=== PATIENT | male | born 1985 | race American Indian/Alaskan Native ===

== ENCOUNTER 2017-11-24 14:29 | Emergency (ER) | payer OTHER ==
[2017-11-24] MEDS ORDERED: Ipratropium 0.02% Inhal Soln (0.5 mg/2.5 ml) UD IH STA (14:50)
[2017-11-24 14:57] VITALS: RESP 18
[2017-11-24 15:41] LABS: ALB/GLOB RATIO 1.4 (1.1-1.8); ALBUMIN 4.4 g/dL (3.0-4.8); ALT/SGPT 63 U/L (7-56); AST/SGOT 49 U/L (17-59); BLOOD UREA NITROGEN 13 mg/dL (7-21); CALCIUM 8.9 mg/dL (8.4-10.5); GFR AFRICAN-AMERICAN > 60; GFR NON-AFRICAN AMERICAN > 60
--- NOTE | 2017-11-24 15:46 | RAD ---
HISTORY: cp COMPARISON: No prior. TECHNIQUE: Chest PA and lateral FINDINGS: LUNGS: No active pulmonary disease. PLEURA: No significant pleural effusion identified. No pneumothorax apparent. CARDIOVASCULAR: Normal. OSSEOUS STRUCTURES: Minor multilevel degenerative spondylosis of the thoracic spine theNo significant abnormalities. VISUALIZED UPPER ABDOMEN: Normal. OTHER FINDINGS: None. IMPRESSION: No active disease.
[2017-11-24 15:47] LABS: BASO # 0.03 K/mm3 (0.0-2.0); BASO % 0.4 % (0.0-3.0); EOS # 0.3 (0.0-0.7); EOS % 3.3 % (1.5-5.0); GRAN # 4.75 (1.4-6.5); GRAN % 58.3 % (50.0-68.0); HEMOGLOBIN 14.1 g/dL (14.0-18.0); LYMPH # 2.6 (1.2-3.4); LYMPH % 31.7 % (22.0-35.0); MEAN CELL VOLUME 81.1 fl (80.0-105.0); MEAN CORPUSCULAR HEMOGLOBIN 28.1 pg (25.0-35.0); MEAN CORPUSCULAR HGB CONC 34.6 g/dl (31.0-37.0); MEAN PLATELET VOLUME 9.7 fl (7.0-11.0); MONO # 0.5 (0.1-0.6); MONO % 6.3 % (1.0-6.0); RBC 5.02 10^6/uL (3.5-6.1); RED CELL DISTRIBUTION WIDTH 14.3 % (11.5-14.5); WHITE BLOOD COUNT 8.1 10^3/ul (4.5-11.0)
[2017-11-24 15:52] LABS: TROPONIN I < 0.01 ng/mL
[2017-11-24 15:58] LABS: INR 0.97 (0.93-1.08)
[2017-11-24 15:59] LABS: B-TYPE NATRIURETIC PEPTIDE < 11.1 pg/mL (0-450); CK-MB 4.5 ng/mL (0.0-3.6)
[2017-11-24] MEDS ORDERED: Albuterol-Ipratrop 3 mg / 0.5 (3 ml) UD IH STA (16:32)
[2017-11-24 17:35] LABS: BARBITURATES, UR NEGATIVE (NEGATIVE); BENZODIAZEPINES, UR NEGATIVE (NEGATIVE); OPIATES, UR NEGATIVE (NEGATIVE); PHENCYCLIDINE, UR NEGATIVE (NEGATIVE)
--- NOTE | 2017-11-24 18:01 | ED PDOC ---
Arrival/HPI - General Chief Complaint: Shortness Of Breath Time Seen by Provider: 11/24/17 14:49 Historian: Patient - History of Present Illness Narrative History of Present Illness (Text): 11/24/17 17:50 31 year old male, whose PMH asthma (childhood), who presents to the emergency department complaining of chest pressure associated with shortness of breath orthopneic exacerbated but not associated with nausea, vomiting, diarrhea or diaphoresis. Patient notes recently starting a workup where he jogs 20-30 minutes 5 times a week and chest pain is never exacerbated. Patient denies family history of ACS or connective tissue disease. Patient denies recent URI, recent travel or PE factors. Time/Duration: < week Symptom Onset: Gradual Symptom Course: Unchanged Quality: Pressure Past Medical History - Provider Review Nursing Documentation Reviewed: Yes - Psychiatric Hx Substance Use: No - Surgical History Other/Comment: R FA sx - Anesthesia Hx Anesthesia: Yes Hx Anesthesia Reactions: No Hx Malignant Hyperthermia: No Family/Social History - Physician Review Nursing Documentation Reviewed: Yes Family/Social History: Unknown Family HX Smoking Status: Never Smoked Hx Alcohol Use: No Hx Substance Use: No Allergies/Home Meds Allergies/Adverse Reactions: Allergies No Known Allergies Allergy (Verified 11/24/17 14:36) Review of Systems - Review of Systems Constitutional: absent: Fatigue, Fevers Respiratory: SOB Cardiovascular: Other (chest pressure) Gastrointestinal: absent: Abdominal Pain, Nausea, Vomiting Genitourinary Male: absent: Dysuria Musculoskeletal: absent: Back Pain Skin: absent: Rash Endocrine: absent: Diaphoresis Physical Exam Vital Signs Reviewed: Yes Vital Signs Temp Pulse Resp BP Pulse Ox 11/24/17 17:24 83 18 140/72 98 11/24/17 14:30 98.6 F 89 18 100 Temperature: Afebrile Blood Pressure: Normal Pulse: Regular Respiratory Rate: Normal Appearance: Positive for: Well-Appearing, Non-Toxic, Comfortable Pain Distress: None Mental Status: Positive for: Alert and Oriented X 3 Medical Decision Making ED Course and Treatment: 11/24/17 Impression: Differential Diagnosis included but are not limited to: Plan: -- EKG -- Chest X-ray -- Labs -- Atrovent, Albuterol, Motrin, Pepcid -- Reassess and disposition Progress Notes: 11/24/17 18:00 Chest X-ray: Creator : Richard Rasheed MD FINDINGS: LUNGS: No active pulmonary disease. PLEURA: No significant pleural effusion identified. No pneumothorax apparent. CARDIOVASCULAR: Normal. OSSEOUS STRUCTURES: Minor multilevel degenerative spondylosis of the thoracic spine theNo significant abnormalities. VISUALIZED UPPER ABDOMEN: Normal. OTHER FINDINGS: None. IMPRESSION: No active disease. - Lab Interpretations Lab Results: 11/24/17 14:50 11/24/17 14:50 Lab Results 11/24/17 17:07: Troponin I < 0.01 11/24/17 15:58: Urine Opiates Screen Negative, Urine Methadone Screen Negative, Ur Barbiturates Screen Negative, Ur Phencyclidine Scrn Negative, Ur Amphetamines Screen Negative, U Benzodiazepines Scrn Negative, U Oth Cocaine Metabols Negative, U Cannabinoids Screen Negative 11/24/17 14:50: Sodium 142, Potassium 4.1, Chloride 105, Carbon Dioxide 26, Anion Gap 15, BUN 13, Creatinine 1.1, Est GFR ( Amer) > 60, Est GFR (Non- Af Amer) > 60, Random Glucose 88, Calcium 8.9, Magnesium 1.9, Total Bilirubin 0.4, AST 49, ALT 63 H, Alkaline Phosphatase 47, Lactate Dehydrogenase 615, Total Creatine Kinase 632 H, CK-MB (CK-2) 4.5 H, CK-MB (CK-2) % Cancelled, Troponin I < 0.01, NT-Pro-B Natriuret Pep < 11.1, Total Protein 7.6, Albumin 4.4 , Globulin 3.2, Albumin/Globulin Ratio 1.4 11/24/17 14:50: PT 11.0, INR 0.97 11/24/17 14:50: WBC 8.1, RBC 5.02, Hgb 14.1, Hct 40.7 L, MCV 81.1, MCH 28.1, MCHC 34.6, RDW 14.3, Plt Count 255, MPV 9.7, Gran % 58.3, Lymph % (Auto) 31.7, [place] % (Auto) 6.3 H, Eos % (Auto) 3.3, Baso % (Auto) 0.4, Gran # 4.75, Lymph # ( Auto) 2.6, [place] # (Auto) 0.5, Eos # (Auto) 0.3, Baso # (Auto) 0.03 I have reviewed the lab results: Yes - RAD Interpretation Radiology Orders: 11/24/17 14:49 CHEST TWO VIEWS (PA/LAT) [RAD] Stat Rigging Up Man: Radiologist - EKG Interpretation Interpreted by ED Physician: Yes Type: 12 lead EKG - Medication Orders Current Medication Orders: Discontinued Medications Albuterol/Ipratropium (Duoneb 3 Mg/0.5 Mg (3 Ml) Ud) 3 ml IH STAT STA Stop: 11/24/17 16:33 Last Admin: 11/24/17 16:58 Dose: 3 ml Famotidine (Pepcid) 40 mg PO STAT STA Stop: 11/24/17 14:52 Last Admin: 11/24/17 15:15 Dose: 40 mg Ibuprofen (Motrin Tab) 800 mg PO STAT STA Stop: 11/24/17 14:51 Last Admin: 11/24/17 15:15 Dose: 800 mg Ipratropium Peculiar (Atrovent) 0.5 mg IH STAT STA Stop: 11/24/17 14:51 Last Admin: 11/24/17 15:15 Dose: 0.5 mg - Scribe Statement The provider has reviewed the documentation as recorded by the Sina Mackey Provider Scribe Attestation: All medical record entries made by the Scribe were at my direction and personally dictated by me. I have reviewed the chart and agree that the record accurately reflects my personal performance of the history, physical exam, medical decision making, and the department course for this patient. I have also personally directed, reviewed, and agree with the discharge instructions and disposition. Disposition/Present on Arrival - Present on Arrival History of DVT/PE: No History of Uncontrolled Diabetes: No Urinary Catheter: No History of Decub. Ulcer: No History Surgical Site Infection Following: None - Disposition Diagnosis: Recurrent bronchospasm Disposition: HOME/ ROUTINE Patient Problems: Current Active Problems Problem Status Onset Recurrent bronchospasm Acute Condition: IMPROVED Discharge Instructions (ExitCare): Asthma, Adult (DC), Exercise-Induced Asthma Print Language: KHMER Additional Instructions: Use you inhaler 2 puffs twice a day. Continue exercising . Return for worsening symptoms. Please follow up with your regular pmd as a rpogress check. If symptoms worsen then please return to the ED for further evalution. Your workup here today yields that this may likley be asthma related bronchospasm and should respond to your night ly nebulizer. Prescriptions: Albuterol/Ipratropium [Combivent Respimat] 2 puff IH BID PRN 7 Days #1 inhaler PRN Reason: Shortness Of Breath Prednisone [Deltasone] 40 mg PO DAILY #10 tablet Referrals: PCP,NO [Primary Care Provider] - Follow up with primary Forms: [employer] [place] (Kiswahili)
[2017-11-24 19:18] VITALS: BP 149/82; PULSE 88; TEMP 97.9; O2SAT 100
--- NOTE | 2017-11-25 23:03 | CARD ---
APPROVED REPORT EKG Measurement Heart [id number] <Conclusion> Normal sinus rhythm Normal ECG
== END 2017-11-24 19:18 | disposition home or self-care (01) ==
LOC: ED 14:29
DX: J98.01 Acute bronchospasm (principal)

== ENCOUNTER 2018-02-04 09:02 | Emergency (ER) | payer OTHER ==
[2018-02-04 09:34] VITALS: TEMP 98.6
--- NOTE | 2018-02-04 09:47 | ED PDOC ---
Arrival/HPI - General Chief Complaint: Lower Extremity Problem/Injury Time Seen by Provider: 02/04/18 09:43 Historian: Patient - History of Present Illness Narrative History of Present Illness (Text): 02/04/18 09:44 This 32 yo male who denies pmh presents to this ED c.o b/l chronic posterior heel pain for many years. Patient stated pain has worsen today. Patient admits having flat feet, and his job requires to be on his feet all the time, all day. Patient denies trauma, calf pain, leg swelling, heavy lifiting, or abnormal gait. Time/Duration: Other (see hpi) Context: Home Past Medical History - Provider Review Nursing Documentation Reviewed: Yes - Infectious Disease Hx of Infectious Diseases: None - Psychiatric Hx Substance Use: No - Surgical History Other/Comment: R FA sx - Anesthesia Hx Anesthesia: Yes Hx Anesthesia Reactions: No Hx Malignant Hyperthermia: No Family/Social History - Physician Review Nursing Documentation Reviewed: Yes Family/Social History: Other (noncontributory) Smoking Status: Never Smoked Hx Alcohol Use: No Hx Substance Use: No Allergies/Home Meds Allergies/Adverse Reactions: Allergies No Known Allergies Allergy (Verified 11/24/17 14:36) Review of Systems - Review of Systems Constitutional: Normal. absent: Fatigue, Weight Change, Fevers Eyes: Normal ENT: Normal Respiratory: Normal Cardiovascular: Normal Gastrointestinal: Normal Genitourinary Male: Normal Musculoskeletal: Other (b/l posterior heel pain) Skin: Normal Neurological: Normal Endocrine: Normal Hemo/Lymphatic: Normal Psychiatric: Normal Physical Exam Vital Signs Temp Pulse Resp BP Pulse Ox 02/04/18 09:29 98.6 F 98 H 16 143/87 99 Temperature: Afebrile Blood Pressure: Normal Pulse: Regular Respiratory Rate: Normal Appearance: Positive for: Well-Appearing, Non-Toxic, Comfortable Pain Distress: None Mental Status: Positive for: Alert and Oriented X 3 - Systems Exam Head: Present: Atraumatic, Normocephalic Pupils: Present: PERRL Extroacular Muscles: Present: EOMI Conjunctiva: Present: Normal Mouth: Present: Moist Mucous Membranes Upper Extremity: Present: Normal Inspection, Normal ROM Lower Extremity: Present: Normal Inspection, NORMAL PULSES, Normal ROM, Neurovascularly Intact, Capillary Refill < 2 s, Other ((+) Pes Planus b/l. Garcia test was negative. No posterior ankle tenderness. No calf tenderness. No edema). No: Edema, CALF TENDERNESS, Cyanosis, Vicky's Sign, Tenderness, Swelling, Erythema, Deformity, Temperature Abnormalties Neurological: Present: GCS=15, CN II-XII Intact, Speech Normal, Motor Func Grossly Intact, Normal Sensory Function, Normal Cerebellar Funct, Gait Normal, Memory Normal Skin: Present: Warm, Dry, Normal Color. No: Rashes Psychiatric: Present: Alert, Oriented x 3, Normal Insight, Normal Concentration Medical Decision Making ED Course and Treatment: 02/04/18 10:37 Re-evaluation. Patient feels better. Discussed results and plan with patient who expresses understanding. All questions answered and there is agreement with the plan to discharge home with instructions. Patient stable for discharge. Return if symptoms persist or worsen. Re-evaluation Time: 10:38 Reassessment Condition: Re-examined, Improved - RAD Interpretation Narrative RAD Interpretations (Text): 02/04/18 10:38 Foot x-rays: no Fx Radiology Orders: 02/04/18 09:58 FOOT RIGHT 3 VIEWS ROUTINE [RAD] Stat - Medication Orders Current Medication Orders: Discontinued Medications Naproxen (Anaprox Ds) 550 mg PO STAT STA Stop: 02/04/18 10:00 Last Admin: 02/04/18 10:14 Dose: 550 mg Disposition/Present on Arrival - Present on Arrival Any Indicators Present on Arrival: No History of DVT/PE: No History of Uncontrolled Diabetes: No Urinary Catheter: No History of Decub. Ulcer: No History Surgical Site Infection Following: None - Disposition Have Diagnosis and Disposition been Completed?: Yes Diagnosis: Heel pain, Pes planus of both feet Disposition: HOME/ ROUTINE Disposition Time: 10:39 Patient Plan: Discharge Patient Problems: Current Active Problems Problem Status Onset Heel pain Acute Pes planus of both feet Acute Condition: GOOD Discharge Instructions (ExitCare): Flat Feet (DC) Additional Instructions: Call private doctor for follow up visit in 1-2 days. Take medication as instructed with food. Remove naida bandage at bedtime. Return to emergency if symptoms worsen. Make an appointment to see crown ironer operator. Prescriptions: Famotidine [Pepcid] 40 mg PO DAILY #10 tablet Naproxen 500 mg PO BID PRN #14 tablet PRN Reason: Pain, Severe (8-10) Referrals: Burke Castellano DPM [Staff Provider] - Follow up with primary Neeraj Heredia, [Staff Provider] - Follow up with primary Forms: [employer] (Lao), WORK NOTE
[2018-02-04] MEDS ORDERED: Naproxen 550 mg Tab PO STA (09:59)
--- NOTE | 2018-02-04 10:41 | RAD ---
Date of service: 02/04/2018 PROCEDURE: Right Foot Radiographs. HISTORY: pain posterior heel COMPARISON: None. FINDINGS: BONES: Normal. No fracture. JOINTS: Normal. SOFT TISSUES: Normal. OTHER FINDINGS: None. IMPRESSION: Normal right foot radiographs.
[2018-02-04 11:34] VITALS: BP 137/78; PULSE 88; RESP 18; O2SAT 100
== END 2018-02-04 11:38 | disposition home or self-care (01) ==
LOC: ED 09:02
DX: M79.672 Pain in left foot (principal); M79.671 Pain in right foot; M21.42 Flat foot [pes planus] (acquired), left foot; M21.41 Flat foot [pes planus] (acquired), right foot

== ENCOUNTER 2018-09-20 07:12 | Emergency (ER) | payer OTHER ==
[2018-09-20 07:26] VITALS: BMI 33.9
[2018-09-20 07:36] VITALS: BP 121/95; PULSE 74; RESP 18; O2SAT 99
--- NOTE | 2018-09-20 07:37 | ED PDOC ---
Arrival/HPI - General Chief Complaint: Finger,Hand,&Wrist Time Seen by Provider: 09/20/18 07:26 Historian: Patient - History of Present Illness Narrative History of Present Illness (Text): 09/20/18 07:37 32 year old male, with no significant past medical history, who presents to the emergency department complaining of left hand pain for 1 day. 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 He reports symptoms were worse before, and states the hand was previously irritated. Patient denies any trauma to the region. He also denies any fever, chills, nausea, vomiting, headache, dizziness, chest pain, back pain, shoulder pain, wrist pain or any other complaints. He was offered pain meds/motrin but he did not want then. Time/Duration: 24 hours Symptom Onset: Gradual Symptom Course: Unchanged Activities at Onset: Light Context: Home Past Medical History - Provider Review Nursing Documentation Reviewed: Yes - Infectious Disease Hx of Infectious Diseases: None - Psychiatric Hx Substance Use: No - Surgical History Other/Comment: R arm surgery due to an accident - Anesthesia Hx Anesthesia: Yes Hx Anesthesia Reactions: No Hx Malignant Hyperthermia: No Family/Social History - Physician Review Nursing Documentation Reviewed: Yes Family/Social History: Unknown Family HX Smoking Status: Never Smoked Hx Alcohol Use: Yes Frequency of alcohol use: Socially Hx Substance Use: No Allergies/Home Meds Allergies/Adverse Reactions: Allergies No Known Allergies Allergy (Verified 11/24/17 14:36) Review of Systems - Physician Review All systems were reviewed & negative as marked: Yes - Review of Systems Constitutional: absent: Fevers Respiratory: absent: SOB, Cough Cardiovascular: absent: Chest Pain Gastrointestinal: absent: Abdominal Pain, Nausea, Vomiting Musculoskeletal: absent: Back Pain, Neck Pain Skin: absent: Rash Neurological: absent: Headache, Dizziness Endocrine: absent: Diaphoresis Physical Exam Vital Signs Reviewed: Yes Vital Signs Temp Pulse Resp BP Pulse Ox 09/20/18 07:13 96.4 F L 74 18 121/95 H 99 Temperature: Afebrile Blood Pressure: Normal Pulse: Regular Respiratory Rate: Normal Appearance: Positive for: Well-Appearing, Non-Toxic, Comfortable Pain Distress: None Mental Status: Positive for: Alert and Oriented X 3 - Systems Exam Head: Present: Atraumatic, Normocephalic Pupils: Present: PERRL Extroacular Muscles: Present: EOMI Conjunctiva: Present: Normal Mouth: Present: Moist Mucous Membranes Neck: Present: Normal Range of Motion Respiratory/Chest: Present: Clear to Auscultation, Good Air Exchange. No: Respiratory Distress, Accessory Muscle Use Cardiovascular: Present: Regular Rate and Rhythm, Normal S1, S2. No: Murmurs Abdomen: No: Tenderness, Distention, Peritoneal Signs Back: Present: Normal Inspection Upper Extremity: Present: Normal Inspection. No: Cyanosis, Edema, Tenderness, Swelling, Erythema Lower Extremity: Present: Normal Inspection. No: Edema Neurological: Present: Speech Normal Skin: Present: Warm, Dry, Normal Color. No: Rashes Psychiatric: Present: Alert, Oriented x 3, Normal Insight, Normal Concentration Medical Decision Making ED Course and Treatment: 09/20/18 07:36 Impression: 32 year old male presents to the Emergency department complaining of left hand pain x 1 day. Differential Diagnosis included but are not limited to: Hand pain r/o Fracture/spur Plan: -- X-Ray left hand -- Reassess and disposition Prior Visits: Notes and results from previous visits were reviewed. Progress Notes: Xrays were reviewed and there is no fracture. He was advised to take motrin as needed for inflammation and pain. He was advised to f/u with a hand surgeon and was given contact information for Dr. Victor. He has no PMD so was referred to Dr. Calderón who is on the call list. - RAD Interpretation Radiology Orders: 09/20/18 07:34 HAND LEFT 3 VIEWS ROUTINE [RAD] Stat - Scribe Statement The provider has reviewed the documentation as recorded by the Sina Chan All medical record entries made by the Scribe were at my direction and personally dictated by me. I have reviewed the chart and agree that the record accurately reflects my personal performance of the history, physical exam, medical decision making, and the department course for this patient. I have also personally directed, reviewed, and agree with the discharge instructions and disposition. Disposition/Present on Arrival - Present on Arrival Any Indicators Present on Arrival: No History of DVT/PE: No History of Uncontrolled Diabetes: No Urinary Catheter: No History of Decub. Ulcer: No History Surgical Site Infection Following: None - Disposition Have Diagnosis and Disposition been Completed?: Yes Diagnosis: Hand pain, left Disposition: HOME/ ROUTINE Disposition Time: 08:19 Patient Plan: Discharge Condition: GOOD Discharge Instructions (ExitCare): Hand Pain (DC) Additional Instructions: LINDY GUEVARA, thank you for letting us take care of you today. Your provider was Fran Mcnair DO and you were treated for Hand Pain. The emergency medical care you received today was directed at your acute symptoms. If you were prescribed any medication, please fill it and take as directed. It may take several days for your symptoms to resolve. Return to the Emergency Department if your symptoms worsen, do not improve, or if you have any other problems. Please contact your doctor or call one of the physicians/clinics you have been referred to that are listed on the Patient Visit Information form that is included in your discharge packet. Bring any paperwork you were given at discharge with you along with any medications you are taking to your follow up visit. Our treatment cannot replace ongoing medical care by a primary care provider outside of the emergency department. Thank you for allowing the [facility] team to be part of your care today. If you had an X-Ray or CT scan: A Radiologist will review the ED reading if any change in treatment is needed we will contact you. If you had a blood, urine, or wound culture: It will take several days for the results, if any change in treatment is needed we will contact you. If you had an STI test: It will take 48 hours for the results. Please call after 1 week if you have not heard back. Prescriptions: Ibuprofen [Motrin] 600 mg PO Q6 PRN #30 tab PRN Reason: Pain, Moderate (4-7) Referrals: Lukasz Victor III, MD [Medical Doctor] - Follow up with primary Arsenio Calderón MD [Staff Provider] - Follow up with primary Forms: [employer] (Surinamese), WORK NOTE
[2018-09-20 08:18] VITALS: TEMP 97.9
--- NOTE | 2018-09-20 08:49 | RAD ---
PROCEDURE: Left Hand Radiographs. HISTORY: hand pain COMPARISON: None. TECHNIQUE: 3 views obtained. FINDINGS: BONES: Normal. No fracture. JOINTS: Normal. No osteoarthritic changes. SOFT TISSUES: Normal. OTHER FINDINGS: None. IMPRESSION: Normal left hand radiographs.
== END 2018-09-20 08:19 | disposition home or self-care (01) ==
LOC: ED 07:12
DX: M79.642 Pain in left hand (principal)

== ENCOUNTER 2018-09-22 09:55 | Emergency (ER) | payer SELFPAY ==
--- NOTE | 2018-09-22 12:58 | ED PDOC ---
Arrival/HPI - General Historian: Patient - History of Present Illness Narrative History of Present Illness (Text): 09/22/18 32 yo male come in for evaluation of Right lower facial painful swelling gradually developed for past few days. Pt reports, pain is localized, non-radiating, not related to toothache or chewing. Pt denies known recent trauma or injury, fever, chills, recent illness, sore throat, drooling, trismus, dysphagia, dyspnea, cough, neck pain, denies any other active complaints. Ambulatory, not in any apparent distress. Past Medical History - Provider Review Nursing Documentation Reviewed: Yes - Infectious Disease Hx of Infectious Diseases: None - Tetanus Immunization Tetanus Immunization: Up to Date - Psychiatric Hx Substance Use: No - Surgical History Other/Comment: R arm surgery due to an accident - Anesthesia Hx Anesthesia: Yes Hx Anesthesia Reactions: No Hx Malignant Hyperthermia: No Family/Social History Family/Social History: No Known Family HX Smoking Status: Never Smoked Hx Alcohol Use: Yes Hx Substance Use: No Allergies/Home Meds Allergies/Adverse Reactions: Allergies No Known Allergies Allergy (Verified 11/24/17 14:36) Review of Systems - Physician Review All systems were reviewed & negative as marked: Yes - Review of Systems ENT: Other (Right lower facial swelling). absent: TMJ Pain, Sore Throat, Rhinorrhea, Epistaxis, Sinus Congestion Respiratory: absent: SOB, Cough, Sputum Skin: Abscess Neurological: Normal Psychiatric: Normal Physical Exam Vital Signs Reviewed: Yes Temperature: Afebrile Blood Pressure: Normal Pulse: Regular Respiratory Rate: Normal Appearance: Positive for: Well-Appearing, Non-Toxic, Comfortable Pain Distress: Mild Mental Status: Positive for: Alert and Oriented X 3 - Systems Exam Conjunctiva: Present: Normal Ears: Present: NORMAL TM (B/L), Normal Canal (B/L) Mouth: Present: Moist Mucous Membranes, Normal Lips, Normal Teeth, Other ((-) evidence of tooth abscess Right lower side). No: Drooling, Trismus Pharnyx: Present: Other (uvula midline, no edema.). No: ERYTHEMA, EXUDATE Nose (Internal): Present: Normal Inspection Neck: Present: Trachea Midline Respiratory/Chest: Present: Clear to Auscultation, Good Air Exchange. No: Respiratory Distress, Wheezes, Decreased Breath Sounds Skin: Present: Warm, Normal Color, Other (tender mass 2cm diameter over Right mandibular area, (-) flactulance, (-) proximal streaking) Disposition/Present on Arrival - Present on Arrival Any Indicators Present on Arrival: Yes History of DVT/PE: No History of Uncontrolled Diabetes: No Urinary Catheter: No History Surgical Site Infection Following: None - Disposition Have Diagnosis and Disposition been Completed?: Yes Diagnosis: Furuncle Disposition: HOME/ ROUTINE Disposition Time: 11:10 Patient Plan: Discharge Condition: STABLE Discharge Instructions (ExitCare): Boil (DC) Additional Instructions: Warm salty water compresses to area take antibiotic- bactrim DS as prescribed follow up with PMD in 2-3 days for re-evaluation. return to ED if any worsening or new changes. Prescriptions: Sulfamethoxazole/Trimethoprim [Bactrim DS 800 mg-160 mg] 1 tab PO BID #14 tab Referrals: PCP,NO [Primary Care Provider] - Follow up with primary [facility] [Outside] - Follow up with primary
== END 2018-09-22 16:22 | disposition home or self-care (01) ==
LOC: ED 09:55
DX: L02.92 Furuncle, unspecified (principal)